=== PATIENT | female | born 1970 | race Caucasian/White ===

== ENCOUNTER 2023-02-12 14:11 | Outpatient (CLI) | payer SELFPAY ==
--- NOTE | 2023-02-12 14:37 | MM_ITS ---
WS: [id number] BILATERAL 3D TOMOSYNTHESIS DIGITAL SCREENING MAMMOGRAPHY WITH CAD CLINICAL INFORMATION: SCREENING HISTORY: Screening mammogram. No current complaints. COMPARISON: 2019 TECHNIQUE: Bilateral CC and MLO views. FINDINGS: Scattered fibroglandular densities bilaterally. No suspicious focal mass, asymmetry, calcifications, or architectural distortion. No evidence of malignancy. Incidental punctate calcifications. MM/[place] [id number] IMPRESSION: BI-RADS: 2-Benign FOLLOW UP: 1 Year Follow-up Recommend return to annual screening mammography.
== END 2023-02-12 14:12 | disposition home or self-care (01) ==
PROVIDERS: PCP Nurse Practitioner Family; Visit Provider Nurse Practitioner Family
DX: Z12.31 Encounter for screening mammogram for malignant neoplasm of breast (principal)
CPT/HCPCS: 77063; 77067

== ENCOUNTER 2024-03-31 11:04 | Outpatient (CLI) | payer OTHER, SELFPAY ==
--- NOTE | 2024-03-31 11:08 | MM_ITS ---
WS: [id number] BILATERAL 3D TOMOSYNTHESIS DIGITAL DIAGNOSTIC MAMMOGRAPHY WITH CAD CLINICAL INFORMATION: AXILLA PAIN HISTORY: Lump RIGHT axilla COMPARISON: 02/12/2023 TECHNIQUE: Bilateral CC, MLO, and ML views. FINDINGS: Scattered fibroglandular densities bilaterally. Few incidental punctate calcifications. No new suspic ious parenchymal abnormalities compared to the prior study. Ultrasound will be obtained of the lump RIGHT axilla. Ultrasound described below. ULTRASOUND BREAST RIGHT TECHNIQUE: Ultrasound right breast focused area of concern. CLINICAL INFORMATION: AXILLA PAIN FINDINGS: Ultrasound RIGHT axilla area of concern. In the area of palpable concern, there is a normal-appearing lymph node with preserved fatty hilum measuring 9 x 9 x 7 mm. This has a benign appearance. No other suspicious abnormalities in the area of concern. Recommend return to annual screening mammography. MM/[place] [id number] IMPRESSION: BI-RADS: 2-Benign FOLLOW UP: 1 Year Follow-up Recommend return to annual screening mammography.
== END 2024-03-31 11:05 | disposition home or self-care (01) ==
LOC: RAD 11:05
PROVIDERS: PCP Nurse Practitioner Family; Visit Provider Nurse Practitioner Family
DX: M79.601 Pain in right arm (principal); R92.323 Mammographic fibroglandular density, bilateral breasts; R92.1 Mammographic calcification found on diagnostic imaging of breast
CPT/HCPCS: 76642; 77062; G0279